=== PATIENT | female | born 1995 ===

== ENCOUNTER 2017-02-01 12:32 | Emergency (ER) | payer SELFPAY ==
[~2017-02-01] VITALS: Ht 160 cm; Wt 50.0 kg
[2017-02-01 12:38] VITALS: BP 135/90; PULSE 90; RESP 14; TEMP 97.8; O2SAT 97
--- NOTE | 2017-02-01 12:45 | PD ---
Physical Exam Date Seen by Provider: Feb 01, 2017 Time Seen by Provider: 12:44 Data Data Last Documented VS Vital Signs Date Time Temp Pulse Resp B/P (MAP) Pulse Ox O2 Delivery O2 Flow Rate FiO2 02/01/17 12:38 97.8 90 14 135/90 (105) 97 MDM Supervised Visit with BAIRON: No Narrative Course 18-year-old female presents to the ED for 1 month history of nonproductive cough. Endorses sick contacts with similar symptoms. Also complains of left wrist pain 3 weeks. No known injury. Vitals are reviewed. Patient seen in triage, awaiting bed placement. Shanda Pickens Feb 01, 2017 12:45
== END 2017-02-01 16:31 | disposition left against medical advice (07) ==
LOC: NETRI 12:32
DX: R05 Cough (principal); M25.532 Pain in left wrist; Z53.21 Procedure and treatment not carried out due to patient leaving prior to being seen by health care provider
CPT/HCPCS: 99281